=== PATIENT | female | born 1975 | race Caucasian/White ===

== ENCOUNTER 2020-03-13 12:07 | Emergency (ER) | payer BC, SELFPAY ==
[2020-03-13 12:09] VITALS: BP 146/81; PULSE 71; RESP 18; TEMP 36.5; O2SAT 100; BMI 28.4
[2020-03-13] MEDS: Lidocaine 1% (20 ml mdv) 20 ML Vial INFILT (12:46)
[2020-03-13] MEDS: Diphth,Pertuss(Acell),Tet Vac 0.5 ML Vial IM (12:47)
[2020-03-13] MEDS: Lidocaine/Epi/Tetracaine 50 ML 1 APPLIC TOPICAL (12:47)
--- NOTE | 2020-03-13 12:54 | ED.VISSUMM ---
- ER Visit Summary Date of Service: 03/13/20 Chief Complaint: Forehead laceration History of Present Illness: The patient is a 44 F who presents with a laceration to her forehead that occurred today. Patient states she was sled riding and went into a retaining wall. Patient states she hit a rock on the retaining wall. Patient states there was a lot of bleeding but this stopped after several minutes of pressure. Patient denies any loss of consciousness. Patient is unsure of her last tetanus. Patient describes her pain as throbbing. Patient denies any paresthesias or weakness. Patient denies any other injuries. Physical Examination: Vital signs are stable. Patient is afebrile. Patient is in no acute distress. Skin is warm dry. There is a 3 cm full-thickness linear laceration above the right eyebrow. There is no bony crepitance or step-off. There is no active bleeding. There are no foreign bodies noted. Pupils are equal, round, and reactive to light bilaterally. Extraocular muscles are intact. Conjunctiva is clear. Neck is supple. Trachea is midline. There is no JVD. Heart was regular rate and rhythm. Lungs are clear and equal bilaterally. Cranial nerves II through XII are intact. There are no focal motor or sensory deficits. Emergency Department Course and Treatment: LET gel was applied to the wound. The wound was cleaned and irrigated with copious amounts of normal saline. The wound was anesthetized with 1% plain lidocaine locally. The wound was closed with 3 simple interrupted #5-0 Vicryl subcutaneous sutures and 6 simple interrupted #6-0 nylon sutures under sterile technique. Patient tolerated the procedure well. Bacitracin dressing was applied. Patient was instructed to keep the wound clean and dry. Patient was instructed to follow-up with her primary care physician in 5 days for wound recheck and suture removal. Patient understood and was agreeable with the plan. All questions were answered. Disposition: Discharge home Impression: Forehead laceration This note was generated with [employer] dictation software. It may contain incorrect words, spelling, and punctuation that were not noted in review of the chart prior to signing ED Disposition - Plan for ED Patient: Disposition: Home or Assisted Living Diagnosis: Forehead laceration Instructions: ED Laceration, Face: Stitches or Tape, ED Head Injury (Adult) Referrals: Care Physician,No Primary [Primary Care Provider] - 5 Days for suture removal
== END 2020-03-13 14:05 | disposition home or self-care (01) ==
PROVIDERS: Emergency Provider Emergency Medicine
DX: S01.81XA Laceration without foreign body of other part of head, initial encounter (principal); W22.09XA Striking against other stationary object, initial encounter; Y93.23 Activity, snow (alpine) (downhill) skiing, snowboarding, sledding, tobogganing and snow tubing; Y92.9 Unspecified place or not applicable
CPT/HCPCS: 12013; 90715; 99283